=== PATIENT | male | born 1945 | race Caucasian/White ===

== ENCOUNTER 2021-08-29 14:19 | Emergency (ER) | payer SELFPAY ==
[2021-08-29 14:35] VITALS: BP 136/64; PULSE 75; RESP 16; TEMP 36.8; O2SAT 98
--- NOTE | 2021-08-29 15:15 | DI.RAD_ITS ---
Exam(s) XR PORTABLE CHEST AP EXAM: XR PORTABLE CHEST AP CLINICAL HISTORY: cough, left lung crackle posterior, covid + TECHNIQUE: 2D digital imaging was performed of the chest. One image was obtained. An AP view was ob tained. COMPARISON: No exams were available for comparison FINDINGS: MEDIASTINUM: Normal. HEART: Normal. PULMONARY VASCULATURE: Normal. LUNGS: There do appear to be faint opacities predominantly in the left perihilar and right lung base concerning for pneumonia. PLEURAL SPACE: No pleural effusion or pneumothorax. BONE:Within normal limits for the patient's age. OTHER FINDINGS:Normal. IMPRESSION: Findings concerning for multifocal pneumonia. DATA REPOSITORY: RADIATION DOSE DELIVERED:
--- NOTE | 2021-08-29 15:22 | ED.GENADUL_ITS ---
Discharge Plan Disposition Patient Disposition: HOME Condition: Stable Discharge Details Clinical Impression: Pneumonia due to COVID-19 virus Primary Care Provider: Unknown,Unknown ED Provider: Nayan Kim Home Meds and New Rx's Prescriptions: New amoxicillin-pot clavulanate 875-125 mg tablet 1 tab PO BID 5 Days Qty: 10 0RF azithromycin 250 mg tablet 250 mg PO DAILY 5 Days Qty: 6 0RF Rx Instructions: take 500 mg (two tabs) on day one, then take 250 mg (1 tab) on days 2-5 of treatment Discharge Instructions Additional Instructions: Please take medications as prescribed. Continue with ibuprofen and/or acetaminophen for pain and fevers. Begin antibiotic therapy if you develop productive cough fevers chills sweats or worsening respiratory symptoms. Please return to the emergency department for any worsening symptomatology. Otherwise please be seen by your primary care physician Medical Decision Making 76-year-old male denies past medical history denies taking medications presents with generalized fatigue fever cough back discomfort of the past several days is COVID-positive. Here to inquire about paxlovid therapy. Counseled regarding this medication he decided he does not want it. Given physical exam finding of crackles in left midlung field as well as patient's subjective back pain fevers and cough as well as fatigue must consider superimposed bacterial pneumonia on top of viral pneumonia. Lower suspicion for ACS PE or aortic pathology. Will obtain x-ray, close reassessment home care instructions and return 16: 41 patient resting comfortably no acute distress. Patient has decided to take antiviral therapy. X-ray showing patchy opacifications bilaterally, likely representing COVID-pneumonia however cannot exclude superimposed bacterial pneumonia multifocal nature, given nontoxic afebrile not hypoxic no respiratory symptoms nonproductive cough likely just viral however given age have told patient I will write him a prescription for Augmentin and azithromycin to be filled if his symptoms are worsening and/or not improving over the next several days. Given strict return precautions for worsening symptomatology. HPI General Date/Time Provider Initiated Documentation: 08/29/21 15:05 . HPI Narrative: 76-year-old male no past medical history presents with several days of cough fatigue fevers and left upper back discomfort. Denies taking any medications. Tested positive for COVID. His is also here positive for COVID. Related Data Home Medications Medication Instructions Recorded Confirmed amoxicillin 875 mg-potassium 1 tab PO BID 5 days #10 tabs 05/28/22 clavulanate 125 mg tablet azithromycin 250 mg tablet 250 mg PO DAILY 5 days #6 tabs 08/29/21 Previous Rx's Medication Instructions Recorded amoxicillin 875 mg-potassium 1 tab PO BID 5 days #10 tabs 08/29/21 clavulanate 125 mg tablet azithromycin 250 mg tablet 250 mg PO DAILY 5 days #6 tabs 08/29/21 Allergies Allergy/AdvReac Type Severity Reaction Status Date / Time No Known Allergies Allergy Unverified 08/29/21 14:38 General Stated Complaint: RespSymp RICHARD: 4 Review of Systems Narrative: Review of Systems Constitutional: Fatigue, fevers Eyes: negative ENT: negative Cardiovascular: negative Respiratory: Cough Gastrointestinal: negative : negative Musculoskeletal: negative Skin: negative Neurologic: negative Psych: negative PFSH All Active Problems (Updated 08/29/21 @ 16:43 by Nayan Kim MD) Pneumonia due to COVID-19 virus (Acute) Social History Smoking/Tobacco Use Status: Never Smoking risk assessment performed?: Yes Alcohol Intake: current Alcohol Intake frequency: 0-2 drinks per day Alcohol type: beer Drug use: Never Substance use type: does not use Do you feel safe at home: Yes Do you feel safe in your relationship?: Yes Exam Narrative Exam Narrative: Physical Examination General: alert, awake, cooperative, resting comfortably, no acute distress HEENT: normocephalic, atraumatic; PERRL, EOM intact, conjunctiva normal; no nasal discharge; moist mucous membranes, oral and pharyngeal mucosa normal, tolerating secretions Neck: supple, trachea midline; full ROM Chest: normal to inspection Respiratory: normal respiratory effort, speaking in full sentences, slight crackles posterior midlung field Cardiac: regular rate, regular rhythm, S1S2 intact, no murmurs rubs or gallops GI: abdomen soft, non-tender, non-distended; no palpable mass or hepatosplenomegaly Skin: no lesions, rashes or trauma appreciated Neuro: AAOx3, normal speech, moving all extremities Psych: Appropriate mood and affect Course Vital Signs Vital signs: Vital Signs Temperature 36.8 C 08/29/21 14:35 Pulse 75 08/29/21 14:35 Respiratory Rate 16 08/29/21 14:35 Blood Pressure 136/64 08/29/21 14:35 Pulse Oximetry 98 08/29/21 14:35 Temperature 36.8 C 08/29/21 14:35 Pulse 75 08/29/21 14:35 Respiratory Rate 16 08/29/21 14:35 Respiratory Effort 08/29/21 14:39 Blood Pressure 136/64 08/29/21 14:35 Pulse Oximetry 98 08/29/21 14:35 Oxygen Delivery Method Room Air 08/29/21 14:35 Oxygen Flow Rate 0 08/29/21 14:35
--- NOTE | 2021-08-29 16:27 | DI.VRAD_ITS ---
PROCEDURE INFORMATION: Exam: XR Chest Exam date and time: 08/29/2021 4:04 PM Age: 76 years old Clinical indication: Patient HX: Cough, left lung crackle posterior, covid + TECHNIQUE: Imaging protocol: XR of the chest. Views: 1 view. COMPARISON: No relevant images were readily available for comparison purposes. FINDINGS: Lungs: Patchy bilateral lung opacities. Pleural spaces: No sizable pleural effusion. No pneumothorax. Heart/Mediastinum: Cardiomediastinal silhouette is within normal limits. Bones/joints: No acute displaced fracture or dislocation. IMPRESSION: Patchy bilateral lung opacities concerning for multifocal pneumonia/infection. Dictated and Authenticated by: Jasper Barrera MD. Ordering:SASCHA Spicer MD
[2021-08-29 17:10] VITALS: BP 136/64; PULSE 75; RESP 16; TEMP 36.8; O2SAT 98
== END 2021-08-29 17:14 | disposition home or self-care (01) ==
PROVIDERS: Emergency Provider Emergency Medicine
DX: U07.1 COVID-19 (principal); J12.82 Pneumonia due to coronavirus disease 2019
CPT/HCPCS: 99283; 71045